=== PATIENT | male | born 1990 | race Caucasian/White ===

== ENCOUNTER 2017-09-18 20:48 | Emergency (ER) | payer OTHER ==
[~2017-09-18] VITALS: Ht 165.1 cm; Wt 61.2 kg
[2017-09-18 20:52] VITALS: Ht 165.1 cm; Wt 61.2 kg
[2017-09-18 23:11] VITALS: BP 120/73
== END 2017-09-18 23:11 | disposition other institution (70) ==
LOC: ED 20:48
DX: S62.611A Displaced fracture of proximal phalanx of left index finger, initial encounter for closed fracture (principal); S71.151A Open bite, right thigh, initial encounter; S00.81XA Abrasion of other part of head, initial encounter; S30.811A Abrasion of abdominal wall, initial encounter; S00.01XA Abrasion of scalp, initial encounter; S00.31XA Abrasion of nose, initial encounter; F10.129 Alcohol abuse with intoxication, unspecified; V49.9XXA Car occupant (driver) (passenger) injured in unspecified traffic accident, initial encounter; Y99.8 Other external cause status; Y93.89 Activity, other specified; Y92.89 Other specified places as the place of occurrence of the external cause
CPT/HCPCS: 90715; A4570

== ENCOUNTER 2017-09-18 20:48 | Emergency (ER) | payer SELFPAY | END 2017-09-18 23:11 | disposition other institution (70) | LOC: ED 20:48 | DX: Z02.89 Encounter for other administrative examinations (principal); S62.611A Displaced fracture of proximal phalanx of left index finger, initial encounter for closed fracture; S71.151A Open bite, right thigh, initial encounter; S00.81XA Abrasion of other part of head, initial encounter; S30.811A Abrasion of abdominal wall, initial encounter; S00.01XA Abrasion of scalp, initial encounter; S00.31XA Abrasion of nose, initial encounter; F10.129 Alcohol abuse with intoxication, unspecified; V49.9XXA Car occupant (driver) (passenger) injured in unspecified traffic accident, initial encounter; Y99.8 Other external cause status; Y93.89 Activity, other specified; Y92.89 Other specified places as the place of occurrence of the external cause ==